=== PATIENT | female | born 1980 | race Hispanic/Latino ===

== ENCOUNTER 2017-11-12 21:34 | Emergency (ER) | payer OTHER | END 2017-11-12 21:55 | disposition home or self-care (01) | LOC: EDH 21:34 | DX: J06.9 Acute upper respiratory infection, unspecified (principal); M19.90 Unspecified osteoarthritis, unspecified site; Z88.8 Allergy status to other drugs, medicaments and biological substances; Z90.49 Acquired absence of other specified parts of digestive tract ==

== ENCOUNTER 2018-01-21 13:25 | Emergency (ER) | payer OTHER ==
[2018-01-21] MEDS ORDERED: ACETAMINOPHEN-CODEINE 300/30MG TAB ONE (15:37)
== END 2018-01-21 15:57 | disposition home or self-care (01) ==
LOC: EDH 13:25
DX: S83.8X1A Sprain of other specified parts of right knee, initial encounter (principal); M19.90 Unspecified osteoarthritis, unspecified site; W01.0XXA Fall on same level from slipping, tripping and stumbling without subsequent striking against object, initial encounter; Y93.89 Activity, other specified; Y92.89 Other specified places as the place of occurrence of the external cause; Y99.8 Other external cause status
CPT/HCPCS: 73562

== ENCOUNTER 2018-05-04 20:42 | Emergency (ER) | payer OTHER ==
[2018-05-04 21:05] LABS: BASOPHILS % (AUTO) 0.5 % (0.0-5.0); EOSINOPHILS % (AUTO) 2.9 % (0.0-8.0); HEMATOCRIT 38.7 % (36-48); LYMPHOCYTES % (AUTO) 22.4 % (21.0-51.0); MEAN CORPUSCULAR HEMOGLOBIN 30.6 pg (27.0-33.0); MEAN CORPUSCULAR HGB CONC 34.7 g/dL (32.0-36.0); MEAN CORPUSCULAR VOLUME 88.1 fL (79-99); MONOCYTES % (AUTO) 6.6 % (3.0-13.0); NEUTROPHILS % (AUTO) 67.6 % (40.0-77.0); PLATELET COUNT (AUTO) 433 K/uL (130-400); RED CELL DISTRIBUTION WIDTH 14.5 % (11.0-15.5); WHITE BLOOD COUNT (AUTO) 12.9 K/uL (4.8-10.8)
[2018-05-04 21:14] LABS: CREATININE 0.9 mg/dL (0.5-1.5); POTASSIUM 3.7 mmol/L (3.5-5.1)
[2018-05-04 21:20] LABS: ALBUMIN 3.5 g/dL (3.5-5.0); BILIRUBIN,TOTAL 0.3 mg/dL (0.2-1.0); TOTAL PROTEIN, SERUM 7.5 g/dL (6.0-8.3)
[2018-05-04] MEDS ORDERED: MAG HYDROX/AL HYDROX/SIMETH ES 30 ML SUSP UDCUP ONE (21:45)
[2018-05-04] MEDS ORDERED: LIDOCAINE HCL 2% VISCOUS 15 ML UDCUP ONE (21:45)
== END 2018-05-04 22:15 | disposition home or self-care (01) ==
LOC: EDH 20:42
DX: K29.70 Gastritis, unspecified, without bleeding (principal); K21.9 Gastro-esophageal reflux disease without esophagitis; M19.90 Unspecified osteoarthritis, unspecified site
CPT/HCPCS: 36415; 80053; 85025; 85378; 93005

== ENCOUNTER 2018-07-24 06:15 | Emergency (ER) | payer OTHER ==
[2018-07-24 07:06] LABS: RAPID GROUP A STREP NEGATIVE (NEGATIVE)
== END 2018-07-24 07:48 | disposition home or self-care (01) ==
LOC: EDH 06:15
DX: J02.8 Acute pharyngitis due to other specified organisms (principal); B97.89 Other viral agents as the cause of diseases classified elsewhere; M79.1 Myalgia; R53.81 Other malaise; M19.90 Unspecified osteoarthritis, unspecified site; Z90.49 Acquired absence of other specified parts of digestive tract
CPT/HCPCS: 87804; 87880

== ENCOUNTER 2018-07-28 14:49 | Emergency (ER) | payer OTHER | END 2018-07-28 15:13 | disposition home or self-care (01) | LOC: EDH 14:49 | DX: J06.9 Acute upper respiratory infection, unspecified (principal); M19.90 Unspecified osteoarthritis, unspecified site | CPT/HCPCS: 99281 ==

== ENCOUNTER 2018-10-04 16:58 | Emergency (ER) | payer OTHER | END 2018-10-04 18:27 | disposition home or self-care (01) | LOC: EDH 16:58 | DX: S99.922A Unspecified injury of left foot, initial encounter (principal); S90.32XA Contusion of left foot, initial encounter; M19.90 Unspecified osteoarthritis, unspecified site; Z90.49 Acquired absence of other specified parts of digestive tract; W20.8XXA Other cause of strike by thrown, projected or falling object, initial encounter; Y93.89 Activity, other specified; Y92.098 Other place in other non-institutional residence as the place of occurrence of the external cause; Y99.8 Other external cause status | CPT/HCPCS: 73630 ==

== ENCOUNTER 2018-10-12 06:57 | Emergency (ER) | payer OTHER ==
[2018-10-12] MEDS ORDERED: ACETAMINOPHEN 325 MG TAB ONE (07:16)
[2018-10-12 07:25] LABS: RAPID GROUP A STREP POSITIVE (NEGATIVE)
[2018-10-12] MEDS ORDERED: SODIUM CHLORIDE 0.9% 1000ML 1,000 ML IV ONE (08:18)
[2018-10-12] MEDS ORDERED: METHYLPREDNISOLONE SOD SUCC 125MG/2ML VIAL ONE (08:18)
[2018-10-12] MEDS ORDERED: KETOROLAC TROMETHAMINE 15MG/ML ONE (08:18)
[2018-10-12] MEDS ORDERED: PEN G BENZ/PEN G PROCAINE 1,200,000 UNIT/2 ML ML IM ONE (08:20)
== END 2018-10-12 09:24 | disposition home or self-care (01) ==
LOC: EDH 06:57
DX: J02.0 Streptococcal pharyngitis (principal); R53.81 Other malaise; R53.83 Other fatigue; M79.10 Myalgia, unspecified site; E66.9 Obesity, unspecified; Z68.42 Body mass index [BMI] 45.0-49.9, adult
CPT/HCPCS: 81025; 87804 ×2; 87880; 96361; 96372; 96374; 96375; 99284; J0558; J1885; J2930; J7030

== ENCOUNTER 2019-08-04 10:44 | Emergency (ER) | payer OTHER ==
[2019-08-04] MEDS ORDERED: MECLIZINE HCL 25 MG TABLET ONE (11:01)
[2019-08-04 11:18] LABS: APPEARANCE,URINE Clear (CLEAR); BILIRUBIN,URINE Negative (NEGATIVE); COLOR,URINE Yellow (YELLOW); GLUCOSE, URINE (UA) Negative (NEGATIVE); KETONES,URINE Negative (NEGATIVE); LEUKOCYTE ESTERASE ,URINE Trace (NEGATIVE); NITRATE,URINE Negative (NEGATIVE); OCCULT BLOOD,URINE Moderate (NEGATIVE); PH,URINE 5.5 (5.0-8.0); PROTEIN,URINE Negative (NEGATIVE); UROBILINOGEN,URINE 0.2 mg/dL (0.2-1.0)
[2019-08-04 11:20] LABS: HCG,QUAL RESULT NEGATIVE (NEGATIVE)
[2019-08-04 11:33] LABS: WBC,URINE 0-1 /HPF (0-1)
[2019-08-04 11:34] LABS: BACTERIA,URINE None Seen /HPF (None Seen); SQUAMOUS EPITHELIAL CELL,UR 0-2 /HPF (0-2)
== END 2019-08-04 12:32 | disposition home or self-care (01) ==
LOC: EDH 10:44
DX: H81.399 Other peripheral vertigo, unspecified ear (principal); R51 Headache; M19.90 Unspecified osteoarthritis, unspecified site; Z88.6 Allergy status to analgesic agent
CPT/HCPCS: 81001; 81025

== ENCOUNTER 2019-10-07 02:38 | Emergency (ER) | payer SELFPAY ==
[2019-10-07] MEDS ORDERED: TETRACAINE HCL 0.5% 4 ML OPHTH SOLN ONE (03:10)
[2019-10-07] MEDS ORDERED: KETOROLAC TROMETHAMINE 15MG/ML ONE (03:10)
== END 2019-10-07 03:25 | disposition home or self-care (01) ==
LOC: EDH 02:38
DX: H65.192 Other acute nonsuppurative otitis media, left ear (principal); Z88.6 Allergy status to analgesic agent
CPT/HCPCS: 81025; 96372; 99283; J1885

== ENCOUNTER 2019-10-08 06:46 | Emergency (ER) | payer SELFPAY ==
[2019-10-08] MEDS ORDERED: LIDOCAINE HCL 2% JELLY 5 ML ONE (07:41)
== END 2019-10-08 08:12 | disposition home or self-care (01) ==
LOC: EDH 06:46
DX: H60.92 Unspecified otitis externa, left ear (principal); M19.90 Unspecified osteoarthritis, unspecified site; Z88.6 Allergy status to analgesic agent; Z90.49 Acquired absence of other specified parts of digestive tract

== ENCOUNTER 2019-12-16 19:58 | Emergency (ER) | payer OTHER ==
[2019-12-16] MEDS ORDERED: ONDANSETRON 4 MG TABLET ONE (20:25)
[2019-12-16] MEDS ORDERED: ACETAMINOPHEN EXTRA STRENGTH 500 MG TABLET ONE (20:25)
[2019-12-16 20:44] LABS: APPEARANCE,URINE Clear (CLEAR); BILIRUBIN,URINE Negative (NEGATIVE); COLOR,URINE Yellow (YELLOW); GLUCOSE, URINE (UA) Negative (NEGATIVE); KETONES,URINE Negative (NEGATIVE); LEUKOCYTE ESTERASE ,URINE Small (NEGATIVE); NITRATE,URINE Negative (NEGATIVE); OCCULT BLOOD,URINE Negative (NEGATIVE); PROTEIN,URINE Negative (NEGATIVE)
[2019-12-16 20:45] LABS: BASOPHILS % (AUTO) 0.1 % (0.0-5.0); EOSINOPHILS % (AUTO) 1.9 % (0.0-8.0); HEMATOCRIT 39.4 % (36-48); LYMPHOCYTES % (AUTO) 10.4 % (21.0-51.0); MEAN CORPUSCULAR HGB CONC 32.7 g/dL (32.0-36.0); MEAN CORPUSCULAR VOLUME 88.5 fL (79-99); MONOCYTES % (AUTO) 3.9 % (3.0-13.0); NEUTROPHILS % (AUTO) 83.3 % (40.0-77.0); PLATELET COUNT (AUTO) 404 K/uL (130-400); RED BLOOD CELL COUNT(AUTO) 4.45 MIL/uL (4.00-5.50); RED CELL DISTRIBUTION WIDTH 14.2 % (11.0-15.5); WHITE BLOOD COUNT (AUTO) 10.4 K/uL (4.8-10.8)
[2019-12-16 21:01] LABS: CREATININE 0.8 mg/dL (0.5-1.5); POTASSIUM 3.9 mmol/L (3.5-5.1)
[2019-12-16 21:13] LABS: BACTERIA,URINE Rare /HPF (None Seen); RBC,URINE None Seen /HPF (0-1); SQUAMOUS EPITHELIAL CELL,UR 0-2 /HPF (0-2)
[2019-12-16 21:13] LABS: ALBUMIN 3.2 g/dL (3.5-5.0); BILIRUBIN,TOTAL 0.4 mg/dL (0.2-1.0); TOTAL PROTEIN, SERUM 7.5 g/dL (6.0-8.3)
== END 2019-12-16 21:58 | disposition home or self-care (01) ==
LOC: EDH 19:58
DX: B34.9 Viral infection, unspecified (principal); R10.84 Generalized abdominal pain; M19.90 Unspecified osteoarthritis, unspecified site; Z90.49 Acquired absence of other specified parts of digestive tract; Z88.6 Allergy status to analgesic agent
CPT/HCPCS: 36415; 80053; 81001; 83690; 84702; 85025; 99283; Q0162

== ENCOUNTER 2021-06-15 03:06 | Emergency (ER) | payer MEDICAID, OTHER ==
[~2021-06-15] VITALS: Ht 165.1 cm; Wt 136.1 kg
[2021-06-15 03:30] VITALS: BP 105/57
[2021-06-15] MEDS ORDERED: AZIT500T PO (05:02)
[2021-06-15] MEDS ORDERED: IVER3TAB PO (05:02)
[2021-06-15] MEDS ORDERED: ALBU6.7H9 IH (05:02)
[2021-06-15 05:10] VITALS: BP 110/62
== END 2021-06-15 05:34 | disposition home or self-care (01) ==
LOC: EDH 03:06
DX: U07.1 COVID-19 (principal); J20.8 Acute bronchitis due to other specified organisms; E66.01 Morbid (severe) obesity due to excess calories; J45.909 Unspecified asthma, uncomplicated; Z88.6 Allergy status to analgesic agent; Z68.42 Body mass index [BMI] 45.0-49.9, adult
CPT/HCPCS: 71045; 87635; 87880; 99284; C9803

== ENCOUNTER 2021-09-05 12:44 | Emergency (ER) | payer MEDICAID ==
[~2021-09-05] VITALS: Ht 167.6 cm; Wt 142.9 kg
[~2021-09-05 12:44] MED LIST: ALBU6.7H9 IH; AZIT500T PO; IVER3TAB PO
[2021-09-05] MEDS ORDERED: GENTAMICIN SULFATE 0.3% 5ML DROPS OD ONE (13:30)
[2021-09-05] MEDS ORDERED: ACETAMINOPHEN 500 MG TABLET PO ONE (13:30)
[2021-09-05] MEDS ORDERED: MAG/ALUM/SIMETH 30 ML UDCUP PO ONE (13:30)
[2021-09-05] MEDS ORDERED: ACET-2247 PO (14:16)
[2021-09-05 14:25] VITALS: BP 126/78
== END 2021-09-05 14:49 | disposition home or self-care (01) ==
LOC: EDH 12:44
DX: J02.9 Acute pharyngitis, unspecified (principal); H10.9 Unspecified conjunctivitis; Z20.822 Contact with and (suspected) exposure to COVID-19; J45.909 Unspecified asthma, uncomplicated; E66.9 Obesity, unspecified; Z88.6 Allergy status to analgesic agent; Z68.43 Body mass index [BMI] 50.0-59.9, adult; Z79.899 Other long term (current) drug therapy
CPT/HCPCS: 87635; 87880; 99283; C9803

== ENCOUNTER 2022-01-12 18:48 | Emergency (ER) | payer MEDICAID ==
[~2022-01-12] VITALS: Ht 160 cm; Wt 136.1 kg
[~2022-01-12 18:48] MED LIST changes: +ACET-2247 PO
[2022-01-12 20:28] VITALS: BP 142/82
[2022-01-12] MEDS ORDERED: KETOROLAC 30MG VIAL (30MG/ML) IM ONE (20:30)
== END 2022-01-12 20:51 | disposition home or self-care (01) ==
LOC: EDH 18:48
DX: S99.921A Unspecified injury of right foot, initial encounter (principal); E66.9 Obesity, unspecified; Z88.6 Allergy status to analgesic agent; Z90.49 Acquired absence of other specified parts of digestive tract; Z79.1 Long term (current) use of non-steroidal anti-inflammatories (NSAID); Z86.16 Personal history of COVID-19; Z68.43 Body mass index [BMI] 50.0-59.9, adult; X58.XXXA Exposure to other specified factors, initial encounter; Y93.89 Activity, other specified; Y92.89 Other specified places as the place of occurrence of the external cause; Y99.8 Other external cause status
CPT/HCPCS: 73650; 96372; 99284; J1885

== ENCOUNTER 2023-03-20 08:31 | Emergency (ER) | payer MEDICAID ==
[~2023-03-20] VITALS: Ht 160 cm; Wt 140.6 kg
[~2023-03-20 08:31] MED LIST changes: +ALBU6.7H14 IH; -ALBU6.7H9 IH
[2023-03-20 08:51] VITALS: BP 118/70
[2023-03-20] MEDS ORDERED: SOLU-MEDROL 125MG VIAL IVP ONE (11:00)
[2023-03-20] MEDS ORDERED: METH4TAB3 PO (11:09)
== END 2023-03-20 11:33 | disposition home or self-care (01) ==
LOC: EDH 08:31
DX: S80.01XA Contusion of right knee, initial encounter (principal); Z86.16 Personal history of COVID-19; Z90.49 Acquired absence of other specified parts of digestive tract; W01.0XXA Fall on same level from slipping, tripping and stumbling without subsequent striking against object, initial encounter; Y93.89 Activity, other specified; Y92.89 Other specified places as the place of occurrence of the external cause; Y99.8 Other external cause status
CPT/HCPCS: 99283; 96374; 73562; J2930